=== PATIENT | female | born 1985 | race Caucasian/White ===

== ENCOUNTER 2016-06-19 19:56 | Emergency (ER) | payer OTHER ==
[~2016-06-19] VITALS: Ht 165.1 cm; Wt 75.0 kg
[~2016-06-19 19:56] MED LIST: MOTRIN 600600 MG/TAB PO
[2016-06-19 20:00] VITALS: BP 126/87; PULSE 68; TEMP 98.1
[2016-06-19] MEDS ORDERED: PREDNISONE20 MG PO (22:20)
== END 2016-06-19 22:43 | disposition home or self-care (01) ==
LOC: COL.ER 19:56
DX: J01.00 Acute maxillary sinusitis, unspecified (principal)
CPT/HCPCS: J7512

== ENCOUNTER → 2016-10-21 | Outpatient (CLI) | payer OTHER ==
[~2016-10-21] MED LIST changes: +PREDNISONE20 MG PO
== END ==
LOC: COL.RAD 09:39
DX: M67.432 Ganglion, left wrist (principal)
CPT/HCPCS: A9585